=== PATIENT | female | born 1990 | race Two or more races ===

== ENCOUNTER 2023-02-26 13:49 | Emergency (ER) | payer SELFPAY ==
[~2023-02-26] VITALS: Ht 157.5 cm; Wt 66.0 kg
[2023-02-26 19:00] VITALS: BP 124/67; RESP 20; TEMP 97.6; O2SAT 98
[2023-02-26] MEDS ORDERED: ACETAMINOPHEN 500 MG TAB PO ONE (19:45)
[2023-02-26 20:24] LABS: Basophils # (auto) 0 10 ^3/uL (0-0.2); Basophils % (auto) 0.2 % (0.0-2.0); Eosinophils # (auto) 0.1 10 ^3/uL (0-0.8); Eosinophils % (auto) 0.8 % (0.0-7.0); Hematocrit 36.2 % (36.0-46.0); Hemoglobin 12.5 g/dL (12.2-16.2); Lymphocytes # (auto) 3.4 10 ^3/uL (0.4-5.4); Lymphocytes % (auto) 40.3 % (10.0-50.0); Mean Corpuscular Hemoglobin 33.8 pg (28.0-32.0); Mean Corpuscular Hgb Conc. 34.6 g/dL (32.0-36.0); Mean Corpuscular Volume 97.5 fL (80.0-100.0); Monocytes # (auto) 0.5 10 ^3/uL (0-1.3); Monocytes % (auto) 5.6 % (0.0-12.0); Neutrophils # (auto) 4.5 10 ^3/uL (1.6-8.6); Neutrophils % (auto) 53.1 % (37.0-80.0); Red Blood Cells 3.71 10^6/uL (4.0-5.20); Red Cell Distribution Width 12.6 % (11.8-14.3); White Blood Cell 8.5 10^3/uL (4.4-10.8)
[2023-02-26 20:36] LABS: Alanine Aminotransferase 48 U/L (7-40); Albumin 4.1 g/dL (3.2-4.8); Alkaline Phosphatase 52 U/L (46-116); Anion Gap 5 (5-15); Aspartate Aminotransferase 9 U/L (13-40); BUN/Creatinine Ratio 8.5 (10.0-20.0); Blood Urea Nitrogen 5 mg/dL (9-23); Calcium 8.9 mg/dL (8.5-10.1); Carbon Dioxide 28 mmol/L (20-30); Chloride 107 mmol/L (98-107); Glucose 88 mg/dL (74-106); Potassium 3.8 mmol/L (3.5-5.1); Sodium 140 mmol/L (136-145)
[2023-02-26 20:37] LABS: Bilirubin, Total 0.4 mg/dL (0.2-1.0)
[2023-02-26 21:08] VITALS: PULSE 67
[2023-02-26] MEDS ORDERED: CYCL-839 PO (21:49)
[2023-02-26] MEDS ORDERED: IBUP1TAB5 PO (21:49)
== END 2023-02-26 22:15 | disposition home or self-care (01) ==
LOC: ER 13:49
DX: S20.20XA Contusion of thorax, unspecified, initial encounter (principal); X58.XXXA Exposure to other specified factors, initial encounter; Y93.89 Activity, other specified; Y92.89 Other specified places as the place of occurrence of the external cause; Y99.8 Other external cause status
CPT/HCPCS: 36415; 71101; 80053; 85025; 93005